=== PATIENT | female | born 1995 | race African-American/Black ===

== ENCOUNTER 2020-09-11 23:49 | Emergency (ER) | payer OTHER ==
[~2020-09-11] VITALS: Ht 165.1 cm; Wt 102.1 kg
--- NOTE | 2020-09-12 | NUR ---
ED Nurse Note: Pt in restroom providing UA
--- NOTE | 2020-09-12 00:04 | NUR ---
ED Nurse Note: pt ambulated into ed from [facility] [place] lower left back pain that radiates up left side of back 05/07. Pt aao x 4, ambulates with steady gait, VSS no ss of distress noted. Pt states that she fell down stairs while running out of her house on 08/30/2020. Pt reports allergy to motrin. LENYD at bedside. UA sent to lab. Awaiting further orders.
[2020-09-12 00:05] VITALS: BP 123/73
--- NOTE | 2020-09-12 00:10 | Emergency Room Report ---
History of Present Illness General Chief Complaint: Back Pain-No Injury Source: Patient Present Illness HPI Disclaimer: Please note that this report is being documented using DRAGON technology. This can lead to erroneous entry secondary to incorrect interpretation by the dictating instrument. HPI: 25-year-old female presents for evaluation of back pain. Patient states she slipped and fell running out of her house last week landing on her lower back on one of the lower stairs. No head injury or loss conscious. Noted immediate pain that improved with Tylenol. Pain came back over the past few days. Notes a tightness on the right lower back. Exacerbated by bending and twisting motion. Has been taking 325 mg Tylenol with no relief. No relieving factors. Denies lower extremity numbness, tingling, weakness. Denies urinary retention, fecal incontinence, fever, chills. No prior history of back injury. Denies dysuria or hematuria. PMH: Denied PSH: Denied Allergies: Ibuprofen, edema Social Hx: Denies drug or alcohol abuse Allergies: Coded Allergies: IBUPROFEN (Verified Allergy, Unknown, 09/11/20) PINEAPPLE (Verified Allergy, Unknown, 09/11/20) COVID-19 Screening Contact w/high risk pt: No Experienced COVID-19 symptoms?: No COVID-19 Testing performed [employer]: No Patient History Now: No Nursing Documentation-PMH Past Medical History: No Stated History Review of Systems All Other Systems: negative except mentioned in HPI Physical Exam Vital Signs Date Time Temp Pulse Resp B/P (MAP) Pulse Ox O2 Delivery O2 Flow Rate FiO2 09/11/20 23:55 98.2 71 18 123/73 (90) 99 Room Air General: Awake and alert, no acute distress HEENT: NC/AT. EOMI. Resp: Normal work of breathing Skin: Intact. No abrasions, laceration or rash over the exposed skin MSK: Normal tone and bulk. Moving all extremities. No obvious deformity. Ambulating without difficulty. Neuro: Awake and alert. Mentating appropriately. Sensation intact over the dermatomes lower extremities bilaterally. Back: No tenderness, step-off or deformity in the cervical or thoracic spine. There is mild tenderness to palpation in the lower midline of the lumbar spine without palpable deformity. Moderate paraspinal tenderness, right greater than left extending over the gluteus on the right side. Medical Decision Making Diagnostic Impression: Primary Impression: Back pain ER Course 25-year-old female presents for evaluation of back pain. Differential includes was not limited to lumbar strain, sprain, fracture, compression fracture, spasm, UTI, pyelonephritis among others. X-ray does not show an obvious fracture or dislocation. There is loss of lordosis consistent with spasm. Urinalysis unremarkable. Patient be treated with Robaxin, Tylenol, lidocaine patches for strain and spasm. Follow-up with PMD. Discussed reasons to return to the ED. She understands and agrees with this treatment plan. Other X-Ray Diagnostic Results Other X-Ray Diagnostic Results : X-Ray ordered: Lumbar spine # of Views/Limited Vs Complete: 4 View Indication: Pain EP Interpretation: Yes Interpretation: no dislocation, no soft tissue swelling, no fractures, other - Loss of lordosis Impression: No acute disease Electronically Signed by: Electronically signed by Dr. Bhavik Moore Last Vital Signs Date Time Temp Pulse Resp B/P (MAP) Pulse Ox O2 Delivery O2 Flow Rate FiO2 09/11/20 23:55 98.2 71 18 123/73 (90) 99 Room Air Disposition: HOME, SELF-CARE Condition: Stable Scripts Lidocaine Patch* (Lidoderm Patch*) 1 Each Adh..patch 1 PATCH TOPIC DAILY, #30 PATCH Patch(es) may remain in place for up to 12 hours in any 24-hour period. Prov: Bhavik Moore MD 09/12/20 Methocarbamol* (ROBAXIN-750*) 750 Mg Tablet 750 MG PO QID, #28 TAB 0 Refills Prov: Bhavik Moore MD 09/12/20 Acetaminophen* (TYLENOL EXTRA STRENGTH*) 500 Mg Tablet 500 MG ORAL Q8H PRN for Prn Headache/Temp > 101, #30 TAB 0 Refills Prov: Bhavik Moore MD 09/12/20 Referrals: [facility],REFERRING (PCP) Bhavik Moore MD Sep 12, 2020 00:10
--- NOTE | 2020-09-12 00:14 | NUR ---
ED Nurse Note: Pt taken to xray in stable condition
[2020-09-12] MEDS ORDERED: Methocarbamol 750mg tab ORAL ONE (00:15)
[2020-09-12] MEDS ORDERED: Acetaminophen 500mg (ES) tab ORAL ONE (00:15)
[2020-09-12] MEDS ORDERED: LIDODERM700 M1 TOPIC (00:33)
[2020-09-12] MEDS ORDERED: ROBAXIN-750750 MG PO (00:33)
[2020-09-12] MEDS ORDERED: TYLENOL EXTRA500 MG ORAL (00:33)
--- NOTE | 2020-09-12 00:38 | NUR ---
ED Nurse Note: pt returned from xray in stable condition. All medications adminsitered, pt tolerated well no ss of distress noted. will continue to monitor.
[2020-09-12 00:47] LABS: APPEARANCE,URINE CLEAR; BILIRUBIN, URINE NEGATIVE (NEGATIVE); GLUCOSE, URINE (UA) NEGATIVE (NEGATIVE); KETONES,URINE NEGATIVE (NEGATIVE); LEUKOCYTE ESTERASE ,URINE 1+ (NEGATIVE); NITRITE,URINE NEGATIVE (NEGATIVE); PH,URINE 6 (4.5-8.0); PROTEIN,URINE NEGATIVE (NEGATIVE); UROBILINOGEN,URINE 1 MG/DL (0.0-1.0)
[2020-09-12 00:49] LABS: COLOR,URINE YELLOW
--- NOTE | 2020-09-12 00:55 | NUR ---
ED Nurse Note: ERMD at bedside
[2020-09-12 00:56] VITALS: BP 127/76
--- NOTE | 2020-09-12 00:56 | NUR ---
ER DISCHARGE NOTE: Patient is cleared to be discharged home per ERMD, pt is aox4, 99% on room air, with stable vital signs. pt was given dc and prescription instructions, pt was able to verbalize understanding, pt id band removed without complications. pt is able to ambulate with steady gait. pt took all belongings.
--- NOTE | 2020-09-12 16:41 | Diagnostic Imaging Report ---
Indication: Pain, trauma Technique: 4 views of the lumbar spine Comparison: None Findings: 20 alignment is normal. Vertebral body heights are preserved. Disc spaces are preserved. The facet joint spaces are preserved. Sacroiliac joint spaces are preserved. Sacral arches are intact. The surrounding soft tissues are unremarkable Impression: Negative
== END 2020-09-12 00:56 | disposition home or self-care (01) ==
LOC: EMR 23:59
DX: M54.5 Low back pain (principal); Z88.6 Allergy status to analgesic agent; Z91.018 Allergy to other foods
CPT/HCPCS: 72110; 81003; 81025; Z7502; 99283